=== PATIENT | female | born 2000 | race Caucasian/White ===

== ENCOUNTER 2025-08-06 11:03 | Emergency (ER) | payer OTHER ==
[~2025-08-06] VITALS: Ht 162.6 cm; Wt 58.2 kg
[2025-08-06] MEDS ORDERED: ZOLO50TA PO (11:24)
[2025-08-06] MEDS ORDERED: PLAQ200T4 PO (11:24)
[2025-08-06 13:33] LABS: BASO # 0.0 10^3/uL (0.0-0.2); BASO % 0.3 % (0.0-1.0); EOS # 0.1 10^3/uL (0.0-0.5); EOS % 1.3 % (0.0-3.0); LYMPH # 1.1 10^3/uL (1.5-5.0); LYMPH % 27.5 % (24.0-44.0); MONO # 0.6 10^3/uL (0.0-0.8); MONO % 15.8 % (2.0-8.0); NEUTROPHILS # 2.1 10^3/uL (1.5-8.5); NEUTROPHILS % 54.6 % (36.0-66.0); PLATELET COUNT, AUTOMATED 195 10^3/uL (150-450)
[2025-08-06 14:00] LABS: ALT/SGPT 10 U/L (7.0-40); AST/SGOT 8 U/L (<34); CALCIUM LEVEL 9.5 MG/DL (8.5-10.1); CARBON DIOXIDE LEVEL 25 MMOL/L (20-31); CHLORIDE LEVEL 108 MMOL/L (98-107); CREATININE FOR GFR 0.46 MG/DL (0.55-1.30); GLOMERULAR FILTRATION RATE > 90.0 (>60); POTASSIUM SERUM 4.2 MMOL/L (3.5-5.1); SODIUM LEVEL 140 MMOL/L (136-145)
[2025-08-06 15:32] VITALS: BP 118/74; TEMP 98.5; O2SAT 97
[2025-08-06 15:40] LABS: KETONE, URINE AUTO RFX NEGATIVE (NEGATIVE); LEUKOCYTE ESTERASE UR AUTO RFX 1+ (NEGATIVE); MUCUS, URINE RFX SMALL (NEGATIVE); NITRITE, URINE AUTO RFX NEGATIVE (NEGATIVE); RBC, URINE AUTO RFX 3 /HPF (0-3); SQUAM EPITHELIAL CELL UR AURFX 5 /HPF (0-6); WBC, URINE AUTO RFX 25 /HPF (0-3)
[2025-08-06] MEDS ORDERED: NITR100C3 PO (16:42)
== END 2025-08-06 15:53 | disposition home or self-care (01) ==
LOC: M ED 11:03
DX: O20.0 Threatened abortion (principal); O23.41 Unspecified infection of urinary tract in pregnancy, first trimester; N39.0 Urinary tract infection, site not specified; O99.891 Other specified diseases and conditions complicating pregnancy; M32.9 Systemic lupus erythematosus, unspecified; O99.341 Other mental disorders complicating pregnancy, first trimester; F32.A Depression, unspecified; F41.9 Anxiety disorder, unspecified; Z88.1 Allergy status to other antibiotic agents; Z88.2 Allergy status to sulfonamides; Z79.899 Other long term (current) drug therapy; Z3A.10 10 weeks gestation of pregnancy; O36.8311 Maternal care for abnormalities of the fetal heart rate or rhythm, first trimester, fetus 1; O46.91 Antepartum hemorrhage, unspecified, first trimester